=== PATIENT | female | born 1980 | race Two or more races ===

== ENCOUNTER 2019-05-24 05:38 | Emergency (ER) | payer BC, MEDICAID, OTHER, SELFPAY ==
[~2019-05-24] VITALS: Ht 152.4 cm; Wt 69.4 kg
[2019-05-24] MEDS ORDERED: OXYcodone/APAP 5/325MG TABLET PO ONE (06:00)
[2019-05-24] MEDS ORDERED: DIAZEPAM 5 MG TABLET PO ONE (06:00)
[2019-05-24] MEDS ORDERED: KETOROLAC 30 MG/1 ML IM ONE (06:00)
[2019-05-24] MEDS ORDERED: DIAZEPAM 5 MG TABLET ONE (06:04)
[2019-05-24] MEDS ORDERED: KETOROLAC 30 MG/1 ML ONE (06:04)
[2019-05-24] MEDS ORDERED: OXYcodone/APAP 5/325MG TABLET ONE (06:05)
--- NOTE | 2019-05-24 06:21 | NUR ---
Patient c/o musculoskeletal pain in upper and lower back. Pain increases on palpation. She states she has had this pain for approx 3 days. 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 Patient is in NAD. Respirations even and unlabored. Medication administered per jul.
[2019-05-24 06:38] LABS: HCG UR SG 1.025 (1.003-1.030)
[2019-05-24 06:39] LABS: CULTURE INDICATED? YES; MICROSCOPIC INDICATED
--- NOTE | 2019-05-24 07:11 | NUR ---
RECEVIED REPORT FROM ALDO. 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 PT STATED SHE DOES NOT WANT TO FILL OUT THE WORKMAN'S COMP PAPERWORK. EXPLAINED TO PT THE PURPOSE OF FILLING OUT WORKMAN'S COMP PAPERWORK, PT STILL DECLINED TO FILL IT OUT. WILL CONTINUE TO MONITOR.
[2019-05-24 07:42] VITALS: BP 123/81
== END 2019-05-24 07:44 | disposition home or self-care (01) ==
LOC: ED 06:05
DX: S39.012A Strain of muscle, fascia and tendon of lower back, initial encounter (principal); S29.012A Strain of muscle and tendon of back wall of thorax, initial encounter; G89.11 Acute pain due to trauma; X58.XXXA Exposure to other specified factors, initial encounter; Y93.89 Activity, other specified; Y92.89 Other specified places as the place of occurrence of the external cause; Y99.8 Other external cause status
CPT/HCPCS: 81001; 81025; 87086; 96372; 99283; J1885

== ENCOUNTER 2019-08-18 18:18 | Emergency (ER) | payer MEDICAID ==
[~2019-08-18] VITALS: Ht 152.4 cm; Wt 68.6 kg
--- NOTE | 2019-08-18 19:10 | NUR ---
report to porter rolon rn. as
[2019-08-18 19:22] LABS: RAPID INFLUENZA A Negative (Negative); RAPID INFLUENZA B Negative (Negative)
[2019-08-18 19:41] VITALS: BP 133/84
== END 2019-08-18 19:45 | disposition home or self-care (01) ==
LOC: ED 19:35
DX: B34.9 Viral infection, unspecified (principal)
CPT/HCPCS: 87081; 87147; 87400; 87880; 99283